=== PATIENT | male | born 1940 | race Caucasian/White ===

== ENCOUNTER 2016-10-30 05:50 | Inpatient (IN) | payer OTHER ==
--- NOTE | 2016-10-29 16:57 | GHP ---
[f rep st] PREOP HISTORY AND PHYSICAL DATE OF ADMISSION: 10/30/2016 HISTORY: This is a 76-year-old male, who presents with left knee pain. He has had progressive knee osteoarthritis. He has had a number of viscosupplementation series; the second of which was not very successful. He has had a steroid injection. He is having predominantly medial knee pain, swelling, and limited motion. It alters his gait, causes him to limp, and impacts his activities of daily living. He has tried appropriate conservative measures. A left total knee arthroplasty is planned. PAST MEDICAL HISTORY: Remarkable for atrial fibrillation. He has a pacemaker. He is on Eliquis. His top executive is Dr. Mcneill. His primary physician is Dr. Ralf Hall. ALLERGIES: He has an allergy to Daypro. SOCIAL HISTORY: He is a former smoker. MEDICATIONS: Include atorvastatin 20 mg p.o. daily, Eliquis 5 mg p.o. daily that will be stopped 3 days prior, and he will be bridged on Lovenox. Benazepril 10 mg p.o. daily, ofloxacin 0.3% eye drops, allopurinol 300 mg p.o. daily, hydrochlorothiazide 25 mg p.o. daily. REVIEW OF SYSTEMS: Positive from a cardiopulmonary standpoint for atrial fibrillation. PHYSICAL EXAMINATION: GENERAL: He is a well-developed, well-nourished male, in no apparent distress. HEAD AND NECK: Normocephalic, atraumatic. CHEST: Clear. CARDIOVASCULAR: Regular rate and rhythm. ABDOMEN: Soft. NEUROLOGIC: He is alert and oriented x3. EXTREMITIES: Examination of the left knee shows a flexion contracture. He has varus malalignment. He has medial joint line tenderness. Stable ligamentous exam. Range of motion is from about 10 degrees to about 100. X-rays show a left knee tricompartment osteoarthritis, joint space narrowing that is most predominant medially. There is degenerative lipping, subchondral sclerosis, varus malalignment. IMPRESSION: Left knee osteoarthritis. PLAN: Left total knee arthroplasty. Benefits and risks of surgery have been reviewed with the patient. He understands that the risks include infection, damage to blood vessels or nerves, failure or loosening of components and need for revision, blood clot in the leg or lungs, bleeding and need for transfusion. We will start his anticoagulation 24-48 hours after surgery, depending on how his wound looks. He understands he is at some increased risk because of his cardiac status. He has signed a consent form and wishes to proceed. /[id number]/MODL MTDD
[2016-10-30] MEDS ORDERED: DEXAMETHASONE 4 MG/ML VIAL IVP ONE (06:02)
[2016-10-30] MEDS ORDERED: ACETAMINOPHEN 325 MG TAB PO ONE (06:02)
[2016-10-30] MEDS ORDERED: ceFAZolin 2 GM/DEXTROSE 100 ML IV ONE (06:02)
[2016-10-30] MEDS ORDERED: LR 1,000 ML IV ONE (06:02)
[2016-10-30] MEDS ORDERED: FAMOTIDINE 20 MG TAB PO ONE (06:02)
[2016-10-30] MEDS ORDERED: LIDOCAINE 1% 2 ML INJ ID PRN (06:02)
[2016-10-30] MEDS ORDERED: POVIDONE-IODINE 20 ML in SODIUM CL IRRIG SOLUTION 500 ML IRR ONE (06:02)
[2016-10-30] MEDS ORDERED: ROPIVACAINE 0.2% 80 MG, EPINEPHrine 0.2 MG in BAG 0 ML IU ONE (06:02)
[2016-10-30] MEDS ORDERED: LIDOCAINE 1% 2 ML INJ ONE (06:05)
[2016-10-30] MEDS ORDERED: ceFAZolin 1 GM/5 ML SYR ONE (06:45)
[2016-10-30] MEDS ORDERED: MIDAZOLAM 2 MG/2 ML VIAL ONE (07:06)
[2016-10-30] MEDS ORDERED: MIDAZOLAM 2 MG/2 ML VIAL IVP ONE (07:07)
--- NOTE | 2016-10-30 07:12 | PDANEPAE ---
ANE History of Present Illness here for L TKA ANE Past Medical History - Cardiovascular History Hx Hypertension: Yes Hx Arrhythmias: Yes Hx Chest Pain: No Hx Coronary Artery / Peripheral Vascular Disease: No Hx CHF / Valvular Disease: No Hx Palpitations: No Cardiovascular History Comment: A fib- on Eliquis BID. On Rx for hyperlipidemia - Pulmonary History Hx COPD: No Hx Asthma/Reactive Airway Disease: No Hx Recent Upper Respiratory Infection: No Hx Oxygen in Use at Home: No Hx Sleep Apnea: No Sleep Apnea Screening Result - Last Documented: Negative - Neurologic History Hx Cerebrovascular Accident: No Hx Seizures: No Hx Dementia: No - Endocrine History Hx Diabetes: No - Renal History Hx Renal Disorders: Yes Renal History Comment: BPH nocturia 4 x/night - Liver History Hx Hepatic Disorders: No - Neurological & Psychiatric Hx Hx Neurological and Psychiatric Disorders: Yes Neurological / Psychiatric History Comment: arthritis neck-no limitations. - Cancer History Hx Cancer: No - Congenital Disorder History Hx Congenital Disorders: No - GI History Hx Gastrointestinal Disorders: No - Other Health History Other Health History: OA- left knee. R eye- red,inflamed,watery. Hx of gout- on Rx. - Chronic Pain History Chronic Pain: Yes (L knee) - Surgical History Prior Surgeries: Appy 1954. Lap Inguinal hernia repair (Dr Brock) Mar 2014. ANE Review of Systems - Exercise capacity Exercise capacity: >=4 METS METS (RN): 4 METS - Pacemaker Pacemaker Type: Permanent Pacer/Defib Pacemaker Sample Hand: ColatrisroniLingvist Date Pacemaker Last Checked: 08-21-16 ANE Patient History - Allergies Allergies/Adverse Reactions: ezetimibe [From Zetia] Allergy (Intermediate, Verified 09/29/16 15:56) BACK PAIN oxaprozin [From Daypro] Allergy (Intermediate, Verified 09/29/16 15:56) STOMACH UPSET - Home Medications Home Medications: Allopurinol [Allopurinol 100 MG (*)] 100 mg PO DAILY 01/29/14 [Last Taken ] Apixaban [Eliquis] 5 mg PO BID 01/29/14 [Last Taken 10/25/16] Hydrochlorothiazide [HCTZ (*)] 25 mg PO DAILY 01/29/14 [Last Taken 10/28/16] Nebivolol HCl [Bystolic 5 mg (*)] 5 mg PO DAILY 01/29/14 [Last Taken 10/29/16] Acetaminophen [Tylenol 325mg (*)] 325 mg PO DAILY PRN 09/23/16 [Last Taken 10/29] Allopurinol [Allopurinol 300 MG (RX)] 300 mg PO DAILY 09/23/16 [Last Taken 10/29] Atorvastatin Calcium [Lipitor 20 mg (*)] 20 mg PO DAILY 09/23/16 [Last Taken ] Benazepril HCl [Lotensin (*)] 10 mg PO DAILY 09/23/16 [Last Taken 10/29/16] Herbals/Supplements -Info Only 1 ea PO DAILY 09/23/16 [Last Taken 10/23/16] - NPO status NPO Since - Liquids (Date): 10/30/16 NPO Since - Liquids (Time): 00:00 NPO Since - Solids (Date): 10/29/16 NPO Since - Solids (Time): 19:00 - Smoking Hx Smoking Status: Former smoker ANE Labs/Vital Signs - Vital Signs Blood Pressure: 127/73 Heart Rate: 69 Respiratory Rate: 16 O2 Sat (%): 94 Height: 165.1 cm Weight: 95.254 kg ANE Physical Exam - Airway Neck exam: FROM Mallampati Score: Class 2 Mouth exam: normal dental/mouth exam - Pulmonary Pulmonary: no respiratory distress - Cardiovascular Cardiovascular: regular rate and rhythym - ASA Status ASA Status: III ANE Anesthesia Plan Anesthesia Plan: spinal (off eliquis for over 3 days and bridged appropriately with lovenox. last prophylactic lovenox dose yesterday am ) Regional Anesthesia: adductor canal FNB
[2016-10-30] MEDS ORDERED: PROPOFOL 200 MG/20 ML VIAL ONE ×2 (07:21→07:37)
[2016-10-30] MEDS ORDERED: fentaNYL 100 MCG/2 ML INJ ONE ×3 (07:21→08:05)
[2016-10-30] MEDS ORDERED: NALOXONE HCL 0.4 MG/ML INJ IVP PRN (07:55)
[2016-10-30] MEDS ORDERED: ONDANSETRON 4 MG/2 ML VIAL IVP PRN ×2 (07:55→09:50)
[2016-10-30] MEDS ORDERED: fentaNYL 100 MCG/2 ML INJ IVP PRN (07:55)
[2016-10-30] MEDS ORDERED: HYDROmorphONE/DILAUDID 1 MG/ML SYR IVP PRN (07:55)
[2016-10-30] MEDS ORDERED: METOCLOPRAMIDE 10 MG/2 ML VIAL IVP PRN (09:50)
[2016-10-30] MEDS ORDERED: TEMAZEPAM 15 MG CAP PO PRN (09:50)
[2016-10-30] MEDS ORDERED: BISACODYL 10 MG SUPP PR PRN (09:50)
[2016-10-30] MEDS ORDERED: LACTULOSE 20 GM/30 ML UDCUP PO PRN (09:50)
[2016-10-30] MEDS ORDERED: MAGNESIUM HYDROXIDE 30 ML UDCUP PO PRN (09:50)
[2016-10-30] MEDS ORDERED: PROMETHAZINE HCL 25 MG SUPPR PR PRN (09:50)
[2016-10-30] MEDS ORDERED: diphenhydrAMINE 25 MG CAP PO PRN (09:50)
[2016-10-30] MEDS ORDERED: PHARMACY PAIN CONSULT 1 EA MISC PRN (09:50)
[2016-10-30] MEDS ORDERED: ONDANSETRON DISINTEGRATING 4 MG TAB PO PRN (09:50)
[2016-10-30] MEDS ORDERED: PROMETHAZINE HCL 25 MG/ML INJ IVP PRN (09:50)
[2016-10-30] MEDS ORDERED: POLYETHYLENE GLYCOL 3350 17 GM PKT PO PRN (09:50)
[2016-10-30] MEDS ORDERED: DIPHENOXYLATE/ATROPINE LOMOTIL 1 TAB PO PRN (09:50)
[2016-10-30] MEDS: ACETAMINOPHEN 325 MG TAB PO SCH ×3 (12:01→22:40)
[2016-10-30] MEDS: LR 1,000 ML IV SCH ×2 (12:04→23:31)
--- NOTE | 2016-10-30 12:05 | GOP ---
[f rep st] OPERATIVE REPORT DATE OF OPERATION: 10/30/2016 SURGEON: Jake Quintanilla MD SCHOOL SUPERVISOR: [employer]. My surgical garment assembler was a medical necessity for this total knee r eplacement. ANESTHESIA: Dr. Hill. PREOPERATIVE DIAGNOSIS: Left knee osteoarthritis. POSTOPERATIVE DIAGNOSIS: Left knee osteoarthritis. PROCEDURE PERFORMED: Left total knee arthroplasty. FINDINGS: SPECIMENS: Included excised bone. ESTIMATED BLOOD LOSS: Minimal. INDICATIONS: The patient is a 76-year-old male with left knee osteoarthritis. He has tricompartmen t osteoarthritis, most severely in the medial compartment. DESCRIPTION OF PROCEDURE: The patient was taken to the operating room, placed supine on the operati ng table. Placed under general anesthetic. He received 2 g of IV Ancef. A tourniquet was fit high on the left thigh, and the left leg was prepped and draped out in usual fashion with chlorhexidine. The limb was elevated, exsanguinated, and the tourniquet inflated to 275 mmHg. I made a longitudi nal incision in the midline. I used a medial parapatellar arthrotomy. Patella was inverted, its th ickness was 24 mm. I removed 9 mm of cartilage and bone to accommodate the patellar component. I s ized this to a 38, then drilled the PEG holes. The combination of the [place] patella and a trial re -established the patellar thickness. The knee was then flexed. I drilled a ship pilot hole in the dista l femur. I used an intramedullary alignment on the femoral side, 5 degrees valgus cut, because he h ad a slight flexion contracture, +2 on the distal cut. I sized the femur at a size 6. Cutting bloc k was used to make appropriate anterior, posterior, camphor cuts, as well as the notch cuts, for thi s bi-cruciate stabilized implant, and the size 6 trial was a good fit. I used an extramedullary dev ice on the tibia. I adjusted for rotation, posterior slope, depth of cut, and made sure I made a ni ce perpendicular cut of the tibial surface. I sized this to a 5. I dialed in the rotation, pinned the trial component, and completed the prep of the tibia. All the components were removed, and jet lavage antibiotic irrigation was used. Methylmethacrylate was applied to the tibia, and the tibial component was hammered into place. Likewise, cement was applied to the femur, femoral component paulette lied. I placed the trial liner and extended the knee to do compression, and I held a patellar compo nent over its cement mantle with a clamp. Once the cement had hardened, I did a series of trial red uctions, found that a 13 mm liner provided full extension, excellent roll back in flexion, and appro priate collateral stability. The size 13 articular insert was snapped into place. I infiltrated ar ound the incision with a joint cocktail, which was ropivacaine and epinephrine. The arthrotomy was closed with interrupted wlozjy-iv-rhrcg sutures of 0 [place], subcu tissue was closed with 2-0 Mon ocryl, and the skin with prabhjot. The wound was dressed with Betadine-soaked Adaptic, 4 x 4, steril e Webril, and a long-leg Jeb stocking. TOURNIQUET TIME: About 1 hour and 10 minutes. DRAINS: None. COUNTS: All counts were correct. DISPOSITION: The patient was taken in stable condition to recovery. SUMMARY OF COMPONENTS: This is a [employer] Journey Knee, Oxinium femur. All components ceme nted. Femur size 6, tibia size 5, articular tray 13 mm cross-linked poly, and the patella 38 mm in diameter. /[id number]/MODL
[2016-10-30] MEDS: ceFAZolin 2 GM/DEXTROSE 100 ML IV SCH ×2 (14:13→22:38)
[2016-10-30] MEDS: SENNOSIDES/DOCUSATE SODIUM TAB PO SCH (20:08)
[2016-10-30] MEDS: oxyCODONE IR 5 MG TAB PO PRN (20:08)
[2016-10-30] MEDS: FAMOTIDINE 20 MG TAB PO SCH (20:09)
[2016-10-31 05:08] LABS: HEMATOCRIT 37.8 % (40.0-51.0); HEMOGLOBIN 12.7 g/dL (13.7-17.5)
[2016-10-31] MEDS: ACETAMINOPHEN 325 MG TAB PO SCH ×4 (06:00→23:35)
--- NOTE | 2016-10-31 08:19 | SOAPPROG ---
SOAP Progress Note Assessment/Plan: Assessment: 10/31/16 POD#1 L TKA, Hct 37, pain controlled, some bloody drainage-dressing changed at 6am-dry, xray fine Plan: 10/31/16 08:15 up with PT, will hold Eliquis with wound drainage, see how PT goes- home likely later today. oxy Rx for D/c Objective: Vital Signs Temp Pulse Resp BP Pulse Ox 36.9 C 69 14 106/52 L 96 10/31/16 07:35 10/31/16 07:35 10/31/16 07:35 10/31/16 07:35 10/31/16 07:35 Laboratory Results 10/31/16 04:14 10/30/16 10/31/16 11/01/16 05:59 05:59 05:59 Intake Total 1625 Output Total 850 Balance 775 ICD10 Worksheet Patient Problems: Problems Problem Status Onset Osteoarthritis of left knee Acute - ICD10 Problem Qualifiers (1) Osteoarthritis of left knee Qualifiers: Osteoarthritis type: O
[2016-10-31] MEDS: SENNOSIDES/DOCUSATE SODIUM TAB PO SCH ×2 (08:23→20:13)
[2016-10-31] MEDS: oxyCODONE IR 5 MG TAB PO PRN (08:24)
[2016-10-31] MEDS: ALLOPURINOL 300 MG TAB PO SCH (08:25)
[2016-10-31] MEDS: ATORVASTATIN CALCIUM 20 MG TAB PO SCH (08:25)
[2016-10-31] MEDS: HYDROCHLOROTHIAZIDE 25 MG TAB PO SCH (08:26)
[2016-10-31] MEDS: NEBIVOLOL HCL 5 MG TAB PO SCH (08:27)
[2016-10-31] MEDS: BENAZEPRIL HCL 10 MG TAB PO SCH (08:28)
[2016-10-31] MEDS: ALLOPURINOL 100 MG TAB PO SCH (08:29)
[2016-10-31] MEDS: FAMOTIDINE 20 MG TAB PO SCH ×2 (08:29→20:13)
[2016-11-01 05:12] LABS: HEMATOCRIT 33.2 % (40.0-51.0)
[2016-11-01] MEDS: ACETAMINOPHEN 325 MG TAB PO SCH ×4 (05:32→23:30)
[2016-11-01] MEDS: ALLOPURINOL 100 MG TAB PO SCH (08:33)
[2016-11-01] MEDS: NEBIVOLOL HCL 5 MG TAB PO SCH (08:33)
[2016-11-01] MEDS: HYDROCHLOROTHIAZIDE 25 MG TAB PO SCH (08:34)
[2016-11-01] MEDS: ATORVASTATIN CALCIUM 20 MG TAB PO SCH (08:34)
[2016-11-01] MEDS: FAMOTIDINE 20 MG TAB PO SCH ×2 (08:34→20:25)
[2016-11-01] MEDS: ALLOPURINOL 300 MG TAB PO SCH (08:35)
[2016-11-01] MEDS: BENAZEPRIL HCL 10 MG TAB PO SCH (08:35)
[2016-11-01] MEDS: oxyCODONE IR 5 MG TAB PO PRN ×3 (09:03→20:25)
[2016-11-01] MEDS: SENNOSIDES/DOCUSATE SODIUM TAB PO SCH ×2 (09:27→20:25)
--- NOTE | 2016-11-01 09:55 | SOAPPROG ---
SOAP Progress Note Assessment/Plan: Assessment: Afebrile. Awake and alert. He has continued to bleed into his dsg. Moderate pain. He has been up and walking. BP was a little low today. There is mild bleeding on his recently changed dsg. H/H is adequate. Plan:Continue to hold Eliquis Hold beta umesh today. Keep in hospital today. Dr. Quintanilla will come by later today. 11/01/16 09:53 Objective: Vital Signs Temp Pulse Resp BP Pulse Ox 36.9 C 70 14 104/49 L 95 11/01/16 07:19 11/01/16 07:19 11/01/16 07:19 11/01/16 08:34 11/01/16 07:19 Laboratory Results 11/01/16 04:16 10/31/16 11/01/16 11/02/16 05:59 05:59 05:59 Intake Total 1625 400 Output Total 850 600 Balance 775 -200 ICD10 Worksheet Patient Problems: Problems Problem Status Onset Osteoarthritis of left knee Acute
--- NOTE | 2016-11-01 17:23 | SOAPPROG ---
SOAP Progress Note Assessment/Plan: Assessment: 10/31/16 POD#1 L TKA, Hct 37, pain controlled, some bloody drainage-dressing changed at 6am-dry, xray fine 11/01/16 POD#2, pain control and mobility ok, continued wound bloody drainage. Plan: 10/31/16 08:15 up with PT, will hold Eliquis with wound drainage, see how PT goes- home likely later today. oxy Rx for D/c 11/01/16 17:18 I changed the dressing with the family corinne, I think the drainage is slowing. Will hold anticoag meds for now. Will likely use asa at D/c. Have discussed with his Director Cardiac Dr Mcneill. Objective: Vital Signs Temp Pulse Resp BP Pulse Ox 36.8 C 70 16 106/58 L 98 11/01/16 16:00 11/01/16 16:00 11/01/16 16:00 11/01/16 16:00 11/01/16 16:00 Laboratory Results 11/01/16 04:16 10/31/16 11/01/16 11/02/16 05:59 05:59 05:59 Intake Total 1625 400 Output Total 850 600 Balance 775 -200 ICD10 Worksheet Patient Problems: Problems Problem Status Onset Osteoarthritis of left knee Acute - ICD10 Problem Qualifiers (1) Osteoarthritis of left knee Qualifiers: Osteoarthritis type: O
[2016-11-02] MEDS: ACETAMINOPHEN 325 MG TAB PO SCH ×3 (05:32→17:03)
--- NOTE | 2016-11-02 07:24 | SOAPPROG ---
SOAP Progress Note Assessment/Plan: Assessment: 10/31/16 POD#1 L TKA, Hct 37, pain controlled, some bloody drainage-dressing changed at 6am-dry, xray fine 11/01/16 POD#2, pain control and mobility ok, continued wound bloody drainage. 11/02/16 POD#3, drainage decreasing, dressing changed Plan: 10/31/16 08:15 up with PT, will hold Eliquis with wound drainage, see how PT goes- home likely later today. oxy Rx for D/c 11/01/16 17:18 I changed the dressing with the family tonight, I think the drainage is slowing. Will hold anticoag meds for now. Will likely use asa at D/c. Have discussed with his Neurourologist Dr Mcneill. 11/02/16 07:22 will see how morning goes, monitor wound, home maybe later today Objective: Vital Signs Temp Pulse Resp BP Pulse Ox 36.9 C 62 18 136/62 H 92 11/02/16 04:00 11/02/16 04:00 11/02/16 04:00 11/02/16 04:00 11/02/16 04:00 Laboratory Results 11/01/16 04:16 11/01/16 11/02/16 11/03/16 05:59 05:59 05:59 Intake Total 400 500 Output Total 600 200 Balance -200 300 ICD10 Worksheet Patient Problems: Problems Problem Status Onset Osteoarthritis of left knee Acute - ICD10 Problem Qualifiers (1) Osteoarthritis of left knee Qualifiers: Osteoarthritis type: O
[2016-11-02] MEDS: ALLOPURINOL 100 MG TAB PO SCH (09:48)
[2016-11-02] MEDS: ALLOPURINOL 300 MG TAB PO SCH (09:48)
[2016-11-02] MEDS: ATORVASTATIN CALCIUM 20 MG TAB PO SCH (09:48)
[2016-11-02] MEDS: NEBIVOLOL HCL 5 MG TAB PO SCH (09:49)
[2016-11-02] MEDS: BENAZEPRIL HCL 10 MG TAB PO SCH (09:49)
[2016-11-02] MEDS: HYDROCHLOROTHIAZIDE 25 MG TAB PO SCH (09:50)
[2016-11-02] MEDS: FAMOTIDINE 20 MG TAB PO SCH ×2 (09:50→20:16)
[2016-11-02] MEDS: SENNOSIDES/DOCUSATE SODIUM TAB PO SCH ×2 (09:51→20:16)
[2016-11-02] MEDS: CEPHALEXIN 500 MG CAP PO SCH ×2 (12:13→17:03)
[2016-11-02] MEDS: oxyCODONE IR 5 MG TAB PO PRN (12:15)
[2016-11-03] MEDS: LR 1,000 ML IV SCH (00:28)
[2016-11-03] MEDS: ACETAMINOPHEN 325 MG TAB PO SCH ×4 (00:29→23:54)
[2016-11-03] MEDS: CEPHALEXIN 500 MG CAP PO SCH ×2 (00:29→12:07)
--- NOTE | 2016-11-03 06:32 | SOAPPROG ---
SOAP Progress Note Assessment/Plan: Assessment: 10/31/16 POD#1 L TKA, Hct 37, pain controlled, some bloody drainage-dressing changed at 6am-dry, xray fine 11/01/16 POD#2, pain control and mobility ok, continued wound bloody drainage. 11/02/16 POD#3, drainage decreasing, dressing changed 11/03/16 POD#3, drainage slowed, but persistant Plan: 10/31/16 08:15 up with PT, will hold Eliquis with wound drainage, see how PT goes- home likely later today. oxy Rx for D/c 11/01/16 17:18 I changed the dressing with the family corinne, I think the drainage is slowing. Will hold anticoag meds for now. Will likely use asa at D/c. Have discussed with his Salesperson [employer] Dr Mcneill. 11/02/16 07:22 will see how morning goes, monitor wound, home maybe later today 11/03/16 06:30 Will proceed to OR for wash out, and drain placement, consent signed, has been medically stable. Objective: Vital Signs Temp Pulse Resp BP Pulse Ox 37.1 C 75 16 115/49 L 95 11/03/16 05:20 11/03/16 05:20 11/03/16 05:20 11/03/16 05:20 11/03/16 05:20 Laboratory Results 11/01/16 04:16 11/02/16 11/03/16 11/04/16 05:59 05:59 05:59 Intake Total 500 Output Total 200 200 Balance 300 -200 ICD10 Worksheet Patient Problems: Problems Problem Status Onset Osteoarthritis of left knee Acute - ICD10 Problem Qualifiers (1) Osteoarthritis of left knee Qualifiers: Osteoarthritis type: O
[2016-11-03] MEDS ORDERED: LR 1,000 ML IV ONE (06:37)
[2016-11-03] MEDS ORDERED: POLYMYXIN B SULFATE 500,000 UNIT/10 ML SYR IRR ONE ×2 (06:55→08:00)
[2016-11-03] MEDS ORDERED: BACITRACIN 50,000 UNITS/10 ML SYR IRR ONE ×2 (06:55→08:00)
--- NOTE | 2016-11-03 07:01 | PDANEPAE ---
ANE History of Present Illness s/p L TKA on 10/30/16 presents for I&D left knee ANE Past Medical History - Cardiovascular History Hx Hypertension: Yes Hx Arrhythmias: Yes Hx Chest Pain: No Hx Coronary Artery / Peripheral Vascular Disease: No Hx CHF / Valvular Disease: No Hx Palpitations: No Cardiovascular History Comment: A fib- on Eliquis BID. On Rx for hyperlipidemia - Pulmonary History Hx COPD: No Hx Asthma/Reactive Airway Disease: No Hx Recent Upper Respiratory Infection: No Hx Oxygen in Use at Home: No Hx Sleep Apnea: No Sleep Apnea Screening Result - Last Documented: Negative - Neurologic History Hx Cerebrovascular Accident: No Hx Seizures: No Hx Dementia: No - Endocrine History Hx Diabetes: No - Renal History Hx Renal Disorders: Yes Renal History Comment: BPH nocturia 4 x/night - Liver History Hx Hepatic Disorders: No - Neurological & Psychiatric Hx Hx Neurological and Psychiatric Disorders: Yes Neurological / Psychiatric History Comment: arthritis neck-no limitations. - Cancer History Hx Cancer: No - Congenital Disorder History Hx Congenital Disorders: No - GI History Hx Gastrointestinal Disorders: No - Other Health History Other Health History: OA- left knee. R eye- red,inflamed,watery. Hx of gout- on Rx. - Chronic Pain History Chronic Pain: Yes (L knee) - Surgical History Prior Surgeries: Appy 1954. Lap Inguinal hernia repair (Dr Brock) Mar 2014. 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: [employer] Date Pacemaker Last Checked: 08-21-16 ANE Patient History - Allergies Allergies/Adverse Reactions: ezetimibe [From Zetia] Allergy (Intermediate, Verified 09/29/16 15:56) BACK PAIN oxaprozin [From Daypro] Allergy (Intermediate, Verified 09/29/16 15:56) STOMACH UPSET - Home Medications Home Medications: Allopurinol [Allopurinol 100 MG (*)] 100 mg PO DAILY 01/29/14 [Last Taken ] Apixaban [Eliquis] 5 mg PO BID 01/29/14 [Last Taken 10/25/16] Hydrochlorothiazide [HCTZ (*)] 25 mg PO DAILY 01/29/14 [Last Taken 10/28/16] Nebivolol HCl [Bystolic 5 mg (*)] 5 mg PO DAILY 01/29/14 [Last Taken 10/29/16] Acetaminophen [Tylenol 325mg (*)] 325 mg PO DAILY PRN 09/23/16 [Last Taken 10/29] Allopurinol [Allopurinol 300 MG (RX)] 300 mg PO DAILY 09/23/16 [Last Taken 10/29] Atorvastatin Calcium [Lipitor 20 mg (*)] 20 mg PO DAILY 09/23/16 [Last Taken ] Benazepril HCl [Lotensin (*)] 10 mg PO DAILY 09/23/16 [Last Taken 10/29/16] RX: Herbals/Supplements -Info Only 1 ea PO DAILY 09/23/16 [Last Taken 10/23/16] - NPO status NPO Since - Liquids (Date): 11/02/16 NPO Since - Liquids (Time): 23:00 NPO Since - Solids (Date): 11/02/16 NPO Since - Solids (Time): 23:00 - Anes Hx Anes Hx: no prior problems - Smoking Hx Smoking Status: Former smoker ANE Labs/Vital Signs - Labs Result Diagrams: 11/01/16 04:16 - Vital Signs Blood Pressure: 128/72 Heart Rate: 70 Respiratory Rate: 16 O2 Sat (%): 92 Height: 165.1 cm Weight: 95.254 kg ANE Physical Exam - Airway Neck exam: FROM Mallampati Score: Class 1 Mouth exam: normal dental/mouth exam - Pulmonary Pulmonary: no respiratory distress - Cardiovascular Cardiovascular: regular rate and rhythym - ASA Status ASA Status: III ANE Anesthesia Plan Anesthesia Plan: GA w LMA Regional Anesthesia: single shot NB, adductor canal FNB
[2016-11-03] MEDS ORDERED: fentaNYL 100 MCG/2 ML INJ ONE ×3 (07:04→08:39)
[2016-11-03] MEDS ORDERED: PROPOFOL 200 MG/20 ML VIAL ONE (07:04)
[2016-11-03] MEDS ORDERED: DEXAMETHASONE 4 MG/ML VIAL ONE (07:06)
[2016-11-03] MEDS ORDERED: LIDOCAINE 2% 5 ML SDV ONE (07:06)
[2016-11-03] MEDS ORDERED: ONDANSETRON 4 MG/2 ML VIAL ONE (07:07)
[2016-11-03] MEDS ORDERED: BUPIVACAINE 0.5% 30 ML SDV ONE (07:10)
[2016-11-03] MEDS ORDERED: ONDANSETRON 4 MG/2 ML VIAL IVP PRN (07:54)
[2016-11-03] MEDS ORDERED: NALOXONE HCL 0.4 MG/ML INJ IVP PRN (07:54)
[2016-11-03] MEDS ORDERED: fentaNYL 100 MCG/2 ML INJ IVP PRN (07:54)
[2016-11-03] MEDS ORDERED: HYDROmorphONE/DILAUDID 1 MG/ML SYR IVP PRN (07:54)
[2016-11-03] MEDS ORDERED: OXYCODONE/APAP 5/325 TAB PO PRN (07:54)
[2016-11-03] MEDS ORDERED: ACETAMINOPHEN 500 MG TAB PO PRN (07:54)
--- NOTE | 2016-11-03 09:14 | POSTANESTH ---
Post Anesthetic Evaluation Cardiovascular Status: Normal, Stable Respiratory Status: Normal, Stable Level of Consciousness/Mental Status: Can Participate in Eval Pain Control: Adequate, Prn Tx Ordered Nausea/Vomiting Control: Adequate, Prn Tx Ordered Complications Possibly Related to Anesthesia: None Noted
[2016-11-03] MEDS: ALLOPURINOL 100 MG TAB PO SCH (12:03)
[2016-11-03] MEDS: ATORVASTATIN CALCIUM 20 MG TAB PO SCH (12:04)
[2016-11-03] MEDS: FAMOTIDINE 20 MG TAB PO SCH ×2 (12:04→21:56)
[2016-11-03] MEDS: ALLOPURINOL 300 MG TAB PO SCH (12:04)
[2016-11-03] MEDS: HYDROCHLOROTHIAZIDE 25 MG TAB PO SCH (12:04)
[2016-11-03] MEDS: BENAZEPRIL HCL 10 MG TAB PO SCH (12:04)
[2016-11-03] MEDS: SENNOSIDES/DOCUSATE SODIUM TAB PO SCH ×2 (12:05→21:56)
[2016-11-03] MEDS: NEBIVOLOL HCL 5 MG TAB PO SCH (12:05)
--- NOTE | 2016-11-03 12:28 | GOP ---
[f rep st] OPERATIVE REPORT DATE OF OPERATION: 11/03/2016 SURGEON: Jake Quintanilla MD DIGITAL COMPUTER OPERATOR: My surgical attendant, Gray Mcgeebeatrice, was a medical necessity for handling soft tissue retraction. PREOPERATIVE DIAGNOSIS: Left total knee arthroplasty with persistent bleeding POSTOPERATIVE DIAGNOSIS: Left total knee arthroplasty with persistent bleeding PROCEDURE PERFORMED: Left knee irrigation, debridement, evacuation of hematoma and reclosure, place ment of drains. FINDINGS: SPECIMENS: No specimens. ESTIMATED BLOOD LOSS: About 50 cc. INDICATIONS: The patient is a 76-year-old male who underwent a left total knee arthroplasty 4 days ago. The surgery was uneventful; postoperatively, though, he continued to have bloody drainage from the inferior aspect of the wound. No wound dehiscence, no signs of infection. Preoperatively, of note, he was anticoagulated, but that was stopped before surgery. No anticoagulation since surgery. I became concerned with his consistent drainage and infection risk, so I advised a trip to the ope rating room for an irrigation, debridement, evacuation of blood and hematoma, and placement of drain s and reclosure. DESCRIPTION OF PROCEDURE: The patient was taken to the operating room, placed supine on the operati ng table, and placed under general anesthetic with laryngeal mask ventilation. He had been placed o n p.o. antibiotics about 48 hours ago, we added 1 g of IV Ancef. A tourniquet was fit high on the l eft thigh, and the left leg prepped and draped with chlorhexidine. I did remove the prabhjot before we did the chlorhexidine prep. Standard draping. I reopened the wound using a scalpel, dividing th e subcutaneous Monocryl sutures, and I removed those sutures. The subcutaneous space had some diffu se oozing and bleeding; on the front of the patella, there were a couple small bleeders that I caute rized. I did open the arthrotomy, and there was a wound hematoma deep in the joint. None of the bl eeding seemed to well up from posteriorly, so I did not exchange the liner and I did not suspect inf ection here. I evacuated hematoma. I used two 3 L bags of double antibiotic irrigation to thorough ly wash out the joint. We started with the tourniquet, but soon thereafter let it down so that we c ould witness whatever bleeding might occur; there were a number of small punctate bleeders that I ca uterized. There was no dominant arterial bleeder. I placed a deep drain in the joint, 15-Macedonian, t o a large suction bulb. I did put a 10-Macedonian drain in the subcutaneous tissue. The arthrotomy had good quality tissue and was closed with interrupted figure-8 sutures of 0 PDS. Subcutaneous tissue was closed in layers with 3-0 Monocryl; the skin was closed with prabhjot, fairly closely placed to approximate the tissue precisely. He will have an adductor block in recovery. The wound was dresse d with Betadine-soaked Adaptic, 4x4s, sterile Webril and long-leg LINDA stocking. I taped the drains securely. COMPLICATIONS: There were no complications. DRAINS: Two drains. COUNTS: All counts were correct. DISPOSITION: The patient was taken in stable condition to recovery. In recovery room, he will have an adductor block. /[id number]/MODL
[2016-11-03 14:17] LABS: % IMMATURE GRANULYOCYTES 0.6 % (0.0-1.1); ABSOLUTE IMMATURE GRANULOCYTES 0.05 10^3/uL (0.00-0.10); ADD DIFF? NO; ADD MORPH? NO; ADD SCAN? NO; ATYPICAL LYMPHOCYTE FLAG 0 (0-99); FRAGMENT RBC FLAG 0 (0-99); HEMATOCRIT 32.3 % (40.0-51.0); HEMOGLOBIN 10.8 g/dL (13.7-17.5); LEFT SHIFT FLG 0 (0-99); LIPEMIA HEMOLYSIS FLAG 80 (0-99); MEAN CELL HEMOGLOBIN 33.1 pg (27.9-34.1); MEAN CELL HEMOGLOBIN CONCENTR. 33.4 g/dL (32.4-36.7); MEAN CELL VOLUME 99.1 fL (81.5-99.8); PLATELET CLUMPS FLAG 10 (0-99); PLATELET COUNT 112 10^3/uL (150-400); RED BLOOD CELL COUNT 3.26 10^6/uL (4.40-6.38); RED CELL DISTRIBUTION WIDTH 13.9 % (11.5-15.2)
[2016-11-03 14:36] LABS: ANION GAP 8 mEq/L (8-16); CALCIUM 8.6 mg/dL (8.5-10.4); CARBON DIOXIDE 26 mEq/l (22-31); CHLORIDE 101 mEq/L (97-110); CREATININE 0.9 mg/dL (0.7-1.3); GLOMERULAR FILTRATION RATE > 60; GLUCOSE 172 mg/dL (70-100); POTASSIUM 5.1 mEq/L (3.5-5.2); SODIUM 135 mEq/L (134-144)
[2016-11-03] MEDS: CYCLOBENZAPRINE 10 MG TAB PO PRN ×2 (14:40→23:59)
[2016-11-03] MEDS: ceFAZolin 2 GM/DEXTROSE 100 ML IV SCH ×2 (14:43→21:56)
[2016-11-03] MEDS: oxyCODONE IR 5 MG TAB PO PRN ×2 (22:15→23:59)
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
[2016-11-04] MEDS: ceFAZolin 2 GM/DEXTROSE 100 ML IV SCH ×3 (06:06→22:58)
[2016-11-04] MEDS: ACETAMINOPHEN 325 MG TAB PO SCH ×3 (06:07→17:24)
[2016-11-04] MEDS: ALLOPURINOL 300 MG TAB PO SCH (09:00)
[2016-11-04] MEDS: BENAZEPRIL HCL 10 MG TAB PO SCH (09:00)
[2016-11-04] MEDS: NEBIVOLOL HCL 5 MG TAB PO SCH (09:00)
[2016-11-04] MEDS: ATORVASTATIN CALCIUM 20 MG TAB PO SCH (09:00)
[2016-11-04] MEDS: SENNOSIDES/DOCUSATE SODIUM TAB PO SCH ×2 (09:00→21:43)
[2016-11-04] MEDS: HYDROCHLOROTHIAZIDE 25 MG TAB PO SCH (09:00)
[2016-11-04] MEDS: ALLOPURINOL 100 MG TAB PO SCH (09:00)
[2016-11-04] MEDS: FAMOTIDINE 20 MG TAB PO SCH ×2 (09:00→21:43)
--- NOTE | 2016-11-04 10:48 | HOSPPROG ---
Hospitalist Progress Note Assessment/Plan: 76y male with TKA. First encounter, chart reviewed. D/W Dr Quintanilla. #AMS resolved #Left finger swelling xray stable, no fx just osteoarthritis #Afib stable #Anemia ABL, stable drains still in defer to ortho #HTN stable on meds #Hyperglycemia mild, in acute setting #Hx pacemaker stable #hx Hyperlipidemia lipitor #Dispo per ortho cont to follow drain outpt Subjective: Up in the chair. Feels well. No pain currently. No issues. Objective: Vital Signs Temp Pulse Resp BP Pulse Ox 36.6 C 84 16 130/75 H 98 11/04/16 07:30 11/04/16 07:30 11/04/16 07:30 11/04/16 07:30 11/04/16 07:30 Laboratory Results 11/03/16 14:00 11/03/16 14:00 11/03/16 11/04/16 11/05/16 05:59 05:59 05:59 Intake Total 300 Output Total 200 835 30 Balance -200 -535 -30 - Physical Exam Constitutional: no apparent distress, appears nourished, not in pain Eyes: PERRL, anicteric sclera, EOMI Ears, Nose, Mouth, Throat: moist mucous membranes, hearing normal, ears appear normal Cardiovascular: No JVD, No tachycardia, No edema Respiratory: no respiratory distress, no rales or rhonchi, reduced air movement Gastrointestinal: normoactive bowel sounds, No tenderness, No ascites Skin: warm, normal color, No mottled Musculoskeletal: joint tenderness, muscular tenderness, generalized weakness Neurologic: AAOx3 Psychiatric: interacting appropriately, not anxious, not encephalopathic, thought process linear ICD10 Worksheet Patient Problems: Problems Problem Status Onset Osteoarthritis of left knee Acute
--- NOTE | 2016-11-04 10:56 | SOAPPROG ---
SOAP Progress Note Assessment/Plan: Assessment: 10/31/16 POD#1 L TKA, Hct 37, pain controlled, some bloody drainage-dressing changed at 6am-dry, xray fine 11/01/16 POD#2, pain control and mobility ok, continued wound bloody drainage. 11/02/16 POD#3, drainage decreasing, dressing changed 11/03/16 POD#3, drainage slowed, but persistant 11/04/16, pain controlled. mobility good, drains functioning, dressing clean front of knee Plan: 10/31/16 08:15 up with PT, will hold Eliquis with wound drainage, see how PT goes- home likely later today. oxy Rx for D/c 11/01/16 17:18 I changed the dressing with the family tonight, I think the drainage is slowing. Will hold anticoag meds for now. Will likely use asa at D/c. Have discussed with his Machine Bender Dr Mcneill. 11/02/16 07:22 will see how morning goes, monitor wound, home maybe later today 11/03/16 06:30 Will proceed to OR for wash out, and drain placement, consent signed, has been medically stable. 11/04/16 10:53 Continue drains until tomorrow am Objective: Vital Signs Temp Pulse Resp BP Pulse Ox 36.6 C 84 16 130/75 H 98 11/04/16 07:30 11/04/16 07:30 11/04/16 07:30 11/04/16 07:30 11/04/16 07:30 Laboratory Results 11/03/16 14:00 11/03/16 14:00 11/03/16 11/04/16 11/05/16 05:59 05:59 05:59 Intake Total 300 Output Total 200 835 30 Balance -200 -535 -30 ICD10 Worksheet Patient Problems: Problems Problem Status Onset Osteoarthritis of left knee Acute - ICD10 Problem Qualifiers (1) Osteoarthritis of left knee Qualifiers: Osteoarthritis type: O
[2016-11-04] MEDS: oxyCODONE IR 5 MG TAB PO PRN (22:59)
[2016-11-05] MEDS: ACETAMINOPHEN 325 MG TAB PO SCH ×3 (01:27→11:45)
[2016-11-05] MEDS: ceFAZolin 2 GM/DEXTROSE 100 ML IV SCH (06:19)
[2016-11-05 07:56] VITALS: BP 115/61; RESP 20; TEMP 98.2; O2SAT 93
[2016-11-05] MEDS: FAMOTIDINE 20 MG TAB PO SCH (08:45)
[2016-11-05] MEDS: BENAZEPRIL HCL 10 MG TAB PO SCH (08:45)
[2016-11-05] MEDS: SENNOSIDES/DOCUSATE SODIUM TAB PO SCH (08:45)
[2016-11-05] MEDS: NEBIVOLOL HCL 5 MG TAB PO SCH (08:45)
[2016-11-05] MEDS: ALLOPURINOL 100 MG TAB PO SCH (08:45)
[2016-11-05] MEDS: HYDROCHLOROTHIAZIDE 25 MG TAB PO SCH (08:46)
[2016-11-05] MEDS: ATORVASTATIN CALCIUM 20 MG TAB PO SCH (08:46)
[2016-11-05] MEDS: ALLOPURINOL 300 MG TAB PO SCH (08:46)
[2016-11-05 08:50] VITALS: PULSE 71
--- NOTE | 2016-11-05 10:38 | SOAPPROG ---
SOAP Progress Note Assessment/Plan: Assessment: 10/31/16 POD#1 L TKA, Hct 37, pain controlled, some bloody drainage-dressing changed at 6am-dry, xray fine 11/01/16 POD#2, pain control and mobility ok, continued wound bloody drainage. 11/02/16 POD#3, drainage decreasing, dressing changed 11/03/16 POD#3, drainage slowed, but persistant 11/04/16, pain controlled. mobility good, drains functioning, dressing clean front of knee 11/05/16, up in gupta Plan: 10/31/16 08:15 up with PT, will hold Eliquis with wound drainage, see how PT goes- home likely later today. oxy Rx for D/c 11/01/16 17:18 I changed the dressing with the family tonight, I think the drainage is slowing. Will hold anticoag meds for now. Will likely use asa at D/c. Have discussed with his Sponge Buffer Dr Mcneill. 11/02/16 07:22 will see how morning goes, monitor wound, home maybe later today 11/03/16 06:30 Will proceed to OR for wash out, and drain placement, consent signed, has been medically stable. 11/04/16 10:53 Continue drains until tomorrow am 11/05/16 10:37 Drains removed, staple line dry, dressing changed, ok for D/c, oxy, asa,keflex, home care Objective: Vital Signs Temp Pulse Resp BP Pulse Ox 36.8 C 71 20 115/61 93 11/05/16 07:54 11/05/16 08:45 11/05/16 07:54 11/05/16 08:46 11/05/16 07:54 Laboratory Results 11/03/16 14:00 11/03/16 14:00 11/04/16 11/05/16 11/06/16 05:59 05:59 05:59 Intake Total 300 700 Output Total 835 252 349 Balance -535 448 -349 ICD10 Worksheet Patient Problems: Problems Problem Status Onset Osteoarthritis of left knee Acute - ICD10 Problem Qualifiers (1) Osteoarthritis of left knee Qualifiers: Osteoarthritis type: O
--- NOTE | 2016-11-05 10:47 | PDIAF ---
- Diagnosis Diagnosis: left knee osteoarthritis Code Status: Full Code - Medication Management Discharge Medications: Medications to Continue on Transfer Allopurinol [Allopurinol 100 MG (*)] 100 mg PO DAILY 01/29/14 [Last Taken ] Hydrochlorothiazide [HCTZ (*)] 25 mg PO DAILY 01/29/14 [Last Taken 10/28/16] Nebivolol HCl [Bystolic 5 mg (*)] 5 mg PO DAILY 01/29/14 [Last Taken 10/29/16] Acetaminophen [Tylenol 325mg (*)] 325 mg PO DAILY PRN 09/23/16 [Last Taken 10/29] Allopurinol [Allopurinol 300 MG (RX)] 300 mg PO DAILY 09/23/16 [Last Taken 10/29] Atorvastatin Calcium [Lipitor 20 mg (*)] 20 mg PO DAILY 09/23/16 [Last Taken ] Benazepril HCl [Lotensin (*)] 10 mg PO DAILY 09/23/16 [Last Taken 10/29/16] Herbals/Supplements -Info Only 1 ea PO DAILY 09/23/16 [Last Taken 10/23/16] oxyCODONE IR [Oxycodone Ir (*)] 5 - 10 mg PO Q3HRS PRN #0 tab 11/05/16 [Last Taken Unknown] Senior Living Antibiotics: keflex 500 mg QID for 5 days Discharge Medications: Refer to the Discharge Home Medication list for PRN reason. PICC Care - Routine: Yes - Orders Services needed: Home Care, Physical Therapy Home Care Face to Face: I certify that this patient was under my care and that I had the required [id number] encounter meeting the encounter requirements on the discharge day. My findings support the fact that the patient is homebound as defined in CMS Chapter 7 Medicare Benefits Manual 30.1.1, The condition of the patient is such that there exists a normal inability to leave home and consequently, leaving home would require a considerable and taxing effort. Diet Recommendation: no restrictions on diet Diet Texture: Regular Texture Diet Jeb Stockings Discontinue Date: continue teds left leg during day, may be off at night, right no teds Wound Care Instructions: dressing change daily, 4x4 gauze, rolan Sutures/Shantell Site: staple line left knee, I will remove in my office in 2 weeks Activity/Weight Bearing Restrictions: WBAT, full ROM Additional: has Rx for oxycodone, keflex x 5 days, will start asa 81 mg po daily , starting 11/06/16, and continue until his f/u visit - Follow Up Care Current Providers and Referrals: Matthew Hall MD [Primary Care Provider] -
--- NOTE | 2016-11-05 10:55 | HOSPPROG ---
Hospitalist Progress Note Assessment/Plan: 76y male with TKA. D/W Dr Quintanilla. #AMS resolved #Left finger swelling xray stable, no fx just osteoarthritis #Afib stable #Anemia ABL, stable #HTN stable on meds #Hyperglycemia mild, in acute setting #Hx pacemaker stable #hx Hyperlipidemia lipitor #Dispo per ortho Subjective: Feeling well. Eager to go home. Objective: Vital Signs Temp Pulse Resp BP Pulse Ox 36.8 C 71 20 115/61 93 11/05/16 07:54 11/05/16 08:45 11/05/16 07:54 11/05/16 08:46 11/05/16 07:54 Laboratory Results 11/03/16 14:00 11/03/16 14:00 11/04/16 11/05/16 11/06/16 05:59 05:59 05:59 Intake Total 300 700 Output Total 835 252 349 Balance -535 448 -349 - Physical Exam Constitutional: no apparent distress, not in pain Eyes: PERRL, anicteric sclera Ears, Nose, Mouth, Throat: moist mucous membranes, hearing normal Cardiovascular: No JVD, No edema Respiratory: no respiratory distress, reduced air movement Gastrointestinal: No tenderness, No ascites Skin: warm, normal color Musculoskeletal: abnormal gait, generalized weakness Neurologic: AAOx3 Psychiatric: not anxious, not encephalopathic ICD10 Worksheet Patient Problems: Problems Problem Status Onset Osteoarthritis of left knee Acute
[2016-11-05] MEDS: oxyCODONE IR 5 MG TAB PO PRN (11:46)
== END 2016-11-05 12:45 | disposition home health service (06) | DRG 470 ==
LOC: F3N 05:50
PROVIDERS: ADMIT Orthopaedic Surgery; ATTEND Orthopaedic Surgery
PROC: 0SRD0J9 Replacement of Left Knee Joint with Synthetic Substitute, Cemented, Open Approach (ICD-10-PCS; principal; 2016-10-30 07:15)
PROC: 0Y3G0ZZ Control Bleeding in Left Knee Region, Open Approach (ICD-10-PCS; 2016-11-03)
PROC: 0SCD0ZZ Extirpation of Matter from Left Knee Joint, Open Approach (ICD-10-PCS; 2016-11-03)
DX: M17.12 Unilateral primary osteoarthritis, left knee (principal); M96.840 Postprocedural hematoma of a musculoskeletal structure following a musculoskeletal system procedure; I10 Essential (primary) hypertension; E78.5 Hyperlipidemia, unspecified; M19.042 Primary osteoarthritis, left hand; Z95.0 Presence of cardiac pacemaker; Z79.01 Long term (current) use of anticoagulants; Z87.891 Personal history of nicotine dependence
CPT/HCPCS: 97116-GP; 97161-GP; 97165-GO; 97530-GP; 97535-GO; C1713; G8978-GP-CI; G8978-GP-CK; G8979-GP-CI; G8980-GP-CI; G8987-GO-CJ; G8988-GO-CI; G8989-GO-CJ; J0171; J0690; J1100; J2250; J2405; J2704; J2795; J3010